=== PATIENT | male | born 1985 | race Caucasian/White ===

== ENCOUNTER 2016-08-11 11:46 | Emergency (ER) | payer OTHER ==
[2016-08-11 12:01] VITALS: BP 117/84
--- NOTE | 2016-08-11 12:24 | EDM.PDOC ---
ED HPI GENERAL MEDICAL PROBLEM - General Chief Complaint: Abdominal Pain Stated Complaint: RT GROIN INJURY Time Seen by Provider: 08/11/16 12:02 Source of Information: Reports: Patient History Limitations: Reports: No Limitations - History of Present Illness INITIAL COMMENTS - FREE TEXT/NARRATIVE: Patient is a 30-year-old male who presents to the ED complaining of right groin pain. States while working today pulling a large tub full of hoses weighing approximately 250 pounds he felt a pop to the right groin. States he's had some bulging out of the inguinal area with coughing and bearing down. States pain currently is a 7/10 at its peak. Denies any nausea/vomiting, fever or chills. He has had no vomiting nor urinated since injury. He has history of left-sided inguinal hernia that was repaired with a mesh graft 3 years ago. Onset: Today, Sudden Duration: Constant, Waxing/Waning Location: Reports: Other (right inguinal) Quality: Reports: Ache Severity: Moderate Improves with: Reports: Rest Worsens with: Reports: Other (bearing down) Context: Reports: Activity Associated Symptoms: Reports: No Other Symptoms Treatments PLUG ASSEMBLER: Reports: Other (see below) (none stated) Right Groin Pain Score (Numeric/FACES): 7 - Related Data Allergies Allergy/AdvReac Type Severity Reaction Status Date / Time hydromorphone [From Dilaudid] Allergy Fainting Verified 08/11/16 12:04 Home Meds: Home Meds traMADol [Ultram] 50 mg PO Q6H PRN #15 tablet 08/11/16 [Rx] Past Medical History - Past Health History Medical/Surgical History: Denies Medical/Surgical History Genitourinary History: Reports: Other (See Below) Other Genitourinary History: left hernia repair with mesh Social & Family History - Tobacco Use Smoking Status *Q: Current Every Day Smoker Years of Tobacco use: 13 Packs/Tins Daily: 0.5 - Caffeine Use Caffeine Use: Reports: Coffee, Soda - Recreational Drug Use Recreational Drug Use: No Other Recreational Drug Type: had medical marijuana card for hip injury but not using it any more ED ROS GENERAL - Review of Systems Review Of Systems: See Below Constitutional: Reports: No Symptoms Respiratory: Reports: No Symptoms Cardiovascular: Reports: No Symptoms GI/Abdominal: Reports: Abdominal Pain. Denies: Constipation, Diarrhea, Nausea, Vomiting : Reports: No Symptoms Musculoskeletal: Denies: Back Pain Neurological: Denies: Dizziness ED EXAM, GI/ABD - Physical Exam Exam: See Below Exam Limited By: No Limitations General Appearance: Alert, WD/WN, No Apparent Distress Ears: Hearing Grossly Normal Nose: Normal Inspection Throat/Mouth: Normal Voice, No Airway Compromise Neck: Normal Inspection, Supple Respiratory/Chest: No Respiratory Distress, Lungs Clear, Normal Breath Sounds Cardiovascular: Normal Peripheral Pulses, Regular Rate, Rhythm GI/Abdominal: Normal Bowel Sounds, Soft, No Organomegaly, No Distention, Tenderness (mild tenderness noted to the right inguinal area. With bearing down direct hernia is visualized. This is reducible with minimal pain on palpation) (Male) Exam: Normal Inspection, Circumcised, Hernia (right). No: Scrotal Swelling, Scrotum Tenderness (L), Scrotum Tenderness (R), Testicular Tenderness (L), Testicular Tenderness (R) Rectal (Males) Exam: Deferred Neurological: Alert, Oriented, Normal Cognition Psychiatric: Normal Affect, Normal Mood Skin Exam: Warm, Dry, Intact, Normal Color Course - Vital Signs Last Recorded V/S: Last Vital Signs Temp Pulse 80 08/11/16 11:58 Resp 20 08/11/16 11:58 BP 117/84 08/11/16 11:58 Pulse Ox 100 08/11/16 11:58 - Re-Assessments/Exams Free Text/Narrative Re-Assessment/Exam: Examination elicited a direct and indirect hernia to the right inguinal area. He has history of left inguinal hernia requiring open repair with mesh graft. Hernia is reducible with minimal pain present. Patient has no systemic symptoms at this time. Vital signs are stable. No additional studies are required to already diagnose what we already know. We'll discharge home with prescription for tramadol and instructions for followup with general surgeon. Departure - Departure Time of Disposition: 12:24 Disposition: Home, Self-Care 01 Condition: good Clinical Impression: Inguinal hernia, right Abdominal pain Qualifiers: Abdominal location: right lower quadrant Qualified Code(s): R10.31 - Right lower quadrant pain - Discharge Information Prescriptions: traMADol [Ultram] 50 mg PO Q6H PRN #15 tablet PRN Reason: Pain (Severe 7-10) Instructions: Abdominal Pain, Adult, [id number] Referrals: Daniel,[place], MD [Physician] - Forms: ED Department Discharge, Return to Work/School Form Additional Instructions: Take the tramadol as prescribed for pain not managed by tylenol and ibuprofen. Refrain from any heavy lifting. Purchase a hernia girdle at one the local pharmacy's to wear when up ambulating to minimize bowel contents from protruding from hernia site. Call and make an appt. with General Surgeon to be evaluated today for surgery. May return to work light duty only. Suggest not being on your feet all day since this may increase discomfort. If you develop worsening pain, n/v, fever/ chills, inability to reduce hernia please return to the E.D. immediately. Refrain from alcohol use while taking the tramadol. Do not drive while taking tramadol.
== END 2016-08-11 12:42 | disposition home or self-care (01) ==
LOC: JD.ED 11:46
DX: K40.90 Unilateral inguinal hernia, without obstruction or gangrene, not specified as recurrent (principal); F17.210 Nicotine dependence, cigarettes, uncomplicated; Z88.5 Allergy status to narcotic agent
CPT/HCPCS: 99283